=== PATIENT | female | born 1950 | race Caucasian/White ===

== ENCOUNTER 2019-02-23 15:50 | Inpatient (IN) | payer MEDICARE ==
[2019-02-23] MEDS ORDERED: NORMAL SALINE 1000 ML 1,630 ML IV ONE (16:10)
[2019-02-23] MEDS ORDERED: VANCOMYCIN HCL INJ 1000 MG VIAL IV ONE (16:10)
[2019-02-23] MEDS ORDERED: CEFEPIME INJ 1 GM VIAL IM ONE (16:10)
[2019-02-23] MEDS ORDERED: ACETAMINOPHEN 325 MG TABLET PO ONE (16:10)
[2019-02-23] MEDS ORDERED: ACETAMINOPHEN 650 MG SUPP.RECT PR ONE (16:14)
[2019-02-23] MEDS ORDERED: CEFEPIME 2 GM/D5W RTU 2 GM/50 ML RTUPB IV ONE ×2 (16:27→22:12)
[2019-02-23] MEDS ORDERED: NORMAL SALINE 1000 ML 1,000 ML IV ONE ×3 (16:28→18:50)
[2019-02-23 16:29] LABS: VENOUS BLOOD BASE EXCESS 0.4 mmol/L; VENOUS BLOOD HCO3 23.6 mmol/L (20-32); VENOUS BLOOD PCO2 33.6 mmHg (35-63); VENOUS BLOOD PH 7.46 (7.30-7.42)
--- NOTE | 2019-02-23 16:32 | RADIOLOGY REPORT (SQ) ---
EXAM DESCRIPTION: CT HEAD WITHOUT COMPLETED DATE/TIME: 02/23/2019 4:23 pm REASON FOR STUDY: ams COMPARISON: None. TECHNIQUE: Axial images acquired through the brain without intravenous contrast. Images reviewed wi th bone, brain and subdural windows. Additional sagittal and coronal reconstructions were generated. Images stored on PACS. All CT scanners at this facility use dose modulation, iterative reconstruction, and/or weight based d osing when appropriate to reduce radiation dose to as low as reasonably achievable (ALARA). [facility]: Dose Right [facility]: CareDose [facility]: Dose Right [facility]: Teradose 4D [facility]: Pulsant RADIATION DOSE: CT Rad equipment meets quality standard of care and radiation dose reduction techniq ues were employed. CTDIvol: 55.2 mGy. DLP: 1056 mGy-cm.mGy. LIMITATIONS: None. FINDINGS: VENTRICLES: Prominent. CEREBRUM: No masses. No hemorrhage. No midline shift. Areas of low density in the white matter mos t likely due to chronic micro-vascular ischemic change. No evidence for acute infarction. CEREBELLUM: No masses. No hemorrhage. No alteration of density. No evidence for acute infarction. EXTRAAXIAL SPACES: Age-related involutional change. No fluid collections. No masses. ORBITS AND GLOBE: No intra- or extraconal masses. Normal contour of globe without masses. CALVARIUM: No fracture. PARANASAL SINUSES: Soft tissue filling the left maxillary sinus. Partial opacification of the left e thmoid sinus. SOFT TISSUES: No mass or hematoma. OTHER: No other significant finding. IMPRESSION: CHRONIC CHANGES OF ATROPHY AND MICROVASCULAR ISCHEMIA. NO ACUTE PROCESS. SINUS DISEASE. EVIDENCE OF ACUTE STROKE: NO. TECHNICAL DOCUMENTATION: JOB ID: [id number] Quality ID # [id number]: Final reports with documentation of one or more dose reduction techniques (e.g., Au tomated exposure control, adjustment of the mA and/or kV according to patient size, use of iterative reconstruction technique) 2010 [employer]- All Rights Reserved Reading location - IP/workstation name: [email or web address]
[2019-02-23 16:33] LABS: ABSOLUTE LYMPHOCYTES (AUTO) 1.1 10^3/uL (0.5-4.7); ABSOLUTE MONOCYTES (AUTO) 0.5 10^3/uL (0.1-1.4); ABSOLUTE NEUT (AUTO) 7.6 10^3/uL (1.7-8.2); BASOPHILS % (AUTO) 0.2 % (0-2); HEMATOCRIT 34.1 % (36.0-47.0); HEMOGLOBIN 11.8 g/dL (12.0-15.5); LYMPHOCYTES % (AUTO) 11.8 % (13-45); MEAN CORPUSCULAR HEMOGLOBIN 32.6 pg (27.0-33.4); MEAN CORPUSCULAR HGB CONC 34.7 g/dL (32.0-36.0); MEAN CORPUSCULAR VOLUME 94 fl (80-97); MONOCYTES % (AUTO) 5.9 % (3-13); PLATELET COUNT 158 10^3/uL (150-450); RED BLOOD COUNT 3.63 10^6/uL (3.72-5.28); RED CELL DISTRIBUTION WIDTH 13.4 % (11.5-14.0); SEGMENTED NEUTROPHILS % (AUTO) 82.1 % (42-78); TOTAL CELLS COUNTED % (AUTO) 100 %; WHITE BLOOD COUNT 9.3 10^3/uL (4.0-10.5)
[2019-02-23 16:36] LABS: INTERNATIONAL RATION (INR) 0.97; PROTHROMBIN TIME 12.9 SEC (11.4-15.4)
--- NOTE | 2019-02-23 16:40 | RADIOLOGY REPORT (SQ) ---
EXAM DESCRIPTION: CHEST SINGLE VIEW COMPLETED DATE/TIME: 02/23/2019 4:30 pm REASON FOR STUDY: fever COMPARISON: None. EXAM PARAMETERS: NUMBER OF VIEWS: One view. TECHNIQUE: Single frontal radiographic view of the chest acquired. RADIATION DOSE: NA LIMITATIONS: None. FINDINGS: LUNGS AND PLEURA: No opacities, masses or pneumothorax. No pleural effusion. MEDIASTINUM AND HILAR STRUCTURES: No masses. Contour normal. HEART AND VASCULAR STRUCTURES: Heart normal in size. Normal vasculature. BONES: No acute findings. HARDWARE: None in the chest. OTHER: No other significant finding. IMPRESSION: NO ACUTE RADIOGRAPHIC FINDING IN THE CHEST. TECHNICAL DOCUMENTATION: JOB ID: [id number] [place]-72 2010 [employer]- All Rights Reserved Reading location - IP/workstation name: [email or web address]
[2019-02-23 16:48] LABS: ALBUMIN 4.4 g/dL (3.5-5.0); ALKALINE PHOSPHATASE 81 U/L (38-126); ANION GAP 11 (5-19); ASPARTATE AMINO TRANSFERASE 27 U/L (14-36); BILIRUBIN,DIRECT 0.1 mg/dL (0.0-0.4); BILIRUBIN,TOTAL 0.8 mg/dL (0.2-1.3); BLOOD UREA NITROGEN 13 mg/dL (7-20); CALCIUM 9.7 mg/dL (8.4-10.2); CARBON DIOXIDE 26 mmol/L (22-30); CHLORIDE 96 mmol/L (98-107); GLUCOSE 124 mg/dL (75-110); POTASSIUM 3.7 mmol/L (3.6-5.0)
[2019-02-23 17:10] LABS: APPEARANCE,URINE CLOUDY; BILIRUBIN,URINE NEGATIVE (NEGATIVE); COLOR,URINE YELLOW; GLUCOSE, URINE 50 mg/dL (NEGATIVE); KETONES,URINE NEGATIVE (NEGATIVE); PROTEIN,URINE 30 mg/dL (NEGATIVE); URINE SPECIFIC GRAVITY 1.026; UROBILINOGEN,URINE NEGATIVE mg/dL (<2.0)
--- NOTE | 2019-02-23 17:57 | ER Document Report ---
ED Dizziness/Weakness - General Chief Complaint: Altered Mental Status Stated Complaint: ALTERED MENTAL STATUS Time Seen by Provider: 02/23/19 15:55 Mode of Arrival: Medic Information source: Patient, Relative - [facility] Notes: Patient is brought in by ambulance for confusion. Most of the history was obtained from family. They state approximately 2 days ago patient was taken to [facility] for some toe pain. At that time she was diagnosed with toe cellulitis. She was placed on Keflex and Septra. They states she has taken 1 pill of each medicine and then began to become confused. She has remained confused since last night so they brought her to the emergency department today. She did have some vomiting 2 nights ago but none since then. She is complaining of toe pain. For me patient is confused and a very poor historian. She does not complain of any specific pain or problems. Family states the patient has not complained of any type of trouble breathing and has had no real cough. They do not know of any rashes other than her left toe has been red. No known diarrhea. No known injuries. Patient's pain of the left toe was apparently moderate to severe. It radiated up her left leg. Is worse with movement and better with rest. It was a constant throbbing pain. - Related Data Allergies/Adverse Reactions: bees, wasps Allergy (Uncoded 02/23/19 16:40) Past Medical History - General Information source: Patient, Relative - Social History Smoking Status: Never Smoker Frequency of alcohol use: Occasional Drug Abuse: None Family History: Reviewed & Not Pertinent Patient has suicidal ideation: No Patient has homicidal ideation: No Review of Systems - Review of Systems Constitutional: Chills, Fever, Malaise, Weakness Cardiovascular: denies: Chest pain, Palpitations Respiratory: denies: Cough, Short of breath -: Yes All other systems reviewed and negative Physical Exam - Vital signs Vitals: Temp 99.5 F 02/23/19 15:50 Interpretation: Febrile - 102.3 - General General appearance: Anxious In distress: Mild - HEENT Head: Normocephalic, Atraumatic Eyes: Normal Pupils: PERRL - Respiratory Respiratory status: No respiratory distress Chest status: Nontender Breath sounds: Normal Chest palpation: Normal - Cardiovascular Rhythm: Regular Heart sounds: Normal auscultation Murmur: No - Abdominal Inspection: Normal Distension: No distension Bowel sounds: Normal Tenderness: Nontender Organomegaly: No organomegaly - Back Back: Normal, Nontender - Extremities General upper extremity: Normal inspection, Nontender, Normal color, Normal ROM, Normal temperature General lower extremity: Normal inspection, Tender - Left big toe is tender however inspection is unremarkable., Normal color, Normal temperature. No: Gonzalez's sign - Neurological Cognition: Confused Orientation: Disoriented to place, Disoriented to time [place] Coma Scale Eye Opening: Spontaneous [place] Coma Scale Verbal: Confused [place] Coma Scale Motor: Obeys Commands [place] Coma Scale Total: 14 Speech: Normal Motor strength normal: LUE, RUE, LLE, RLE Sensory: Normal - Psychological Associated symptoms: Agitated, Anxious - Skin Skin Temperature: Warm Skin Moisture: Dry Skin Color: Normal Course - Re-evaluation Re-evalutation: 02/23/19 17:55 Patient presents with fever of 1023 and appears to be encephalopathic. Patient is confused. She has no meningismus and I can range her neck without pain. Her exam is not consistent with meningitis. She avidly has a systemic infection however the source of that at this time is unclear. She has a negative urine, negative x-ray, negative head CT. Laboratories are remarkable for an elevated lactate however she has a normal white blood cell count. Her abdomen is not significantly tender. I do not appreciate any rashes. Patient does appear very dry with dry mucous membranes. As patient becomes more hydrated she is becoming less confused. - Vital Signs Vital signs: Temp Pulse Resp BP Pulse Ox 102.9 F H 25 H 97/74 L 99 02/23/19 16:11 02/23/19 17:00 02/23/19 16:02 02/23/19 17:00 - Laboratory Result Diagrams: 02/23/19 16:05 02/23/19 16:05 Laboratory results interpreted by me: 02/23/19 02/23/19 02/23/19 16:05 16:05 16:05 RBC 3.63 L Hgb 11.8 L Hct 34.1 L Lymph % (Auto) 11.8 L Seg Neutrophils % 82.1 H VBG pH VBG pCO2 Sodium 133.4 L Chloride 96 L Glucose 124 H POC Glucose Lactic Acid 2.3 H Urine Protein Urine Glucose (UA) Urine Blood 10/15/19 10/15/19 10/15/19 16:05 16:09 16:51 RBC Hgb Hct Lymph % (Auto) Seg Neutrophils % VBG pH 7.46 H VBG pCO2 33.6 L Sodium Chloride Glucose POC Glucose 120 H Lactic Acid Urine Protein 30 H Urine Glucose (UA) 50 H Urine Blood SMALL H - Diagnostic Test Radiology reviewed: Image reviewed, Reports reviewed - EKG Interpretation by Me EKG shows normal: Sinus rhythm Rate: Normal - 65 Rhythm: NSR [place]/QRS: No: Right axis deviation, Left axis deviation Critical Care Note - Critical Care Note Total time excluding time spent on procedures (mins): 45 Comments: I spent approximately 45 minutes of critical care time on this patient. This included multiple reassessments. It included discussions with multiple family members and patient. It included multiple consults with specialist. It included review of labs and imaging. Discharge - Discharge Clinical Impression: Elevated lactic acid level Fever Qualifiers: Fever type: due to other condition Qualified Code(s): R50.81 - Fever presenting with conditions classified elsewhere Altered mental status Qualifiers: Altered mental status type: disorientation Qualified Code(s): R41.0 - Disorientation, unspecified Condition: Serious Disposition: ADMITTED INPATIENT Admitting Provider: Tray (Hospitalist) Unit Admitted: [facility]
--- NOTE | 2019-02-23 18:10 | PDOC PROGRESS REPORT ---
Subjective Progress Note for:: 02/23/19 Subjective:: "Please give me some water!" Reason For Visit: ALTERED MENTAL STATUS This patient is a 68 yo woman otherwise healthy who has been ill with an altered mental status since yesterday afternoon. She has had a great toe celullitis which is resolved. Family reports a GI illness with no pain but 4-5 episodes of vomiting in the last 24 hours. No obvious history of aspiration. Mental status somewhat altered, flutuates and has not gotten worse. Protecting airway well. Essentially no PO intake. Very dehydrated and literally crying out for something to drink. Physical Exam Vital Signs: Temp Pulse Resp BP Pulse Ox 102.9 F H 25 H 97/74 L 99 02/23/19 16:11 02/23/19 17:00 02/23/19 16:02 02/23/19 17:00 Intake & Output 02/22/19 02/23/19 02/24/19 06:59 06:59 06:59 Intake Total 1050 Balance 1050 Weight 54.2 kg General appearance: PRESENT: no acute distress, cooperative, thin Head exam: PRESENT: atraumatic Eye exam: PRESENT: EOMI, PERRLA Additional comments: Neck moves very well. Ear exam: PRESENT: normal external ear exam Mouth exam: PRESENT: dry mucosa, neck supple, tongue midline Neck exam: PRESENT: full ROM Respiratory exam: PRESENT: clear to auscultation dania, decreased breath sounds, unlabored Cardiovascular exam: PRESENT: RRR Vascular exam: PRESENT: normal capillary refill GI/Abdominal exam: PRESENT: soft Additonal comments: No abdominal pain. Rectal exam: PRESENT: deferred Extremities exam: PRESENT: full ROM Musculoskeletal exam: PRESENT: full ROM, normal inspection Additional comments: No R great toe cellulitis Neurological exam: PRESENT: alert, altered, awake, oriented to person Results Laboratory Results: 02/23/19 16:05 02/23/19 16:05 02/23/19 02/23/19 02/23/19 16:05 16:05 16:05 WBC 9.3 RBC 3.63 L Hgb 11.8 L Hct 34.1 L MCV 94 MCH 32.6 MCHC 34.7 RDW 13.4 Plt Count 158 Seg Neutrophils % 82.1 H VBG pH VBG pCO2 VBG HCO3 VBG Base Excess Sodium 133.4 L Potassium 3.7 Chloride 96 L Carbon Dioxide 26 Anion Gap 11 BUN 13 Creatinine 0.69 Est GFR ( Amer) > 60 Glucose 124 H Lactic Acid 2.3 H Calcium 9.7 Total Bilirubin 0.8 AST 27 Alkaline Phosphatase 81 Total Protein 7.0 Albumin 4.4 Urine Color Urine Appearance Urine pH Ur Specific [place] Urine Protein Urine Glucose (UA) Urine Ketones Urine Blood Urine RBC (Auto) 02/23/19 02/23/19 16:05 16:51 WBC RBC Hgb Hct MCV MCH MCHC RDW Plt Count Seg Neutrophils % VBG pH 7.46 H VBG pCO2 33.6 L VBG HCO3 23.6 VBG Base Excess 0.4 Sodium Potassium Chloride Carbon Dioxide Anion Gap BUN Creatinine Est GFR ( Amer) Glucose Lactic Acid Calcium Total Bilirubin AST Alkaline Phosphatase Total Protein Albumin Urine Color YELLOW Urine Appearance CLOUDY Urine pH 5.0 Ur Specific [place] 1.026 Urine Protein 30 H Urine Glucose (UA) 50 H Urine Ketones NEGATIVE Urine Blood SMALL H Urine RBC (Auto) 3 02/23/19 16:10 Troponin I < 0.012 Impressions: Chest X-Ray 02/23/19 16:10 IMPRESSION: NO ACUTE RADIOGRAPHIC FINDING IN THE CHEST. Head CT 02/23/19 16:12 IMPRESSION: CHRONIC CHANGES OF ATROPHY AND MICROVASCULAR ISCHEMIA. NO ACUTE P ROCESS. SINUS DISEASE. EVIDENCE OF ACUTE STROKE: NO. Assessment & Plan - Diagnosis (1) Fever Qualifiers: Fever type: unspecified Qualified Code(s): R50.9 - Fever, unspecified Is this a current diagnosis for this admission?: Yes Plan: Her fever needs to be treated as it is driving the dehydration and delirium some. Tylenol given. (2) Gastritis Qualifiers: Gastritis type: unspecified gastritis Gastritis bleeding: without bleeding Is this a current diagnosis for this admission?: Yes Plan: Presumed viral. No diarrhea. No further vomiting. OK for liquids at this time. Carafate or protonix may help. Use of recent Keflex is unlikely as her family notes she has taken only one dose and keflex is not known for this (3) Aspiration into airway Qualifiers: Encounter type: initial encounter Qualified Code(s): T17.908A - Unspecified foreign body in respiratory tract, part unspecified causing other injury, initial encounter Is this a current diagnosis for this admission?: Yes Plan: This is a presumed source. Family states 'all this started after she vomited Friday night." Highly suspicious. An aspiration syndrome (Sandip's) can present with SIRS, which she does not have. Delirium which is fluctuating. Profound dehydration which she has. Lungs sounds can be clear and CXR also clear. Especially when dehydrated. Treatment is supportive with oxygen' resp treatments if needed. Antibiotics may not help and rehydration. At this time she is protecting her airway, is awake but altered and has no need for the ICU. If with rehydration her respiratory status worsens we can re-evaluate. Most times they improve. (4) Dehydration Is this a current diagnosis for this admission?: Yes Plan: She has had only about 500cc of first bag. My guess is she will need 3 liters at least. (5) Delirium Is this a current diagnosis for this admission?: Yes Plan: This is flutuating even during my exam. It is acute, driven by fever and dehydration but should improve in the next 24 hours. - Time Time Spent with patient: 35 or more minutes Total Critical Time (Minutes): 45 Medications reviewed and adjusted accordingly: Yes Anticipated discharge: Home Within: within 72 hours - Inpatient Certification Medical Necessity: Failure to Improve With Outpatient Therapy, Need Close Monitoring Due to Risk of Patient Decompensation, Need For IV Fluids, Need for Nebulizer Therapy and Monitoring of Response
[2019-02-23] MEDS ORDERED: DEXTROSE 40% GEL 15 GM TUBE PO PRN ×4 (18:30→18:43)
[2019-02-23] MEDS ORDERED: ACETAMINOPHEN 325 MG TABLET PO PRN (18:30)
[2019-02-23] MEDS ORDERED: VANCOMYCIN HCL 0 MG in DEXTROSE 5%-WATER 250 ML IV NR (18:30)
[2019-02-23] MEDS ORDERED: DEXTROSE 50%-WATER 25 GM/50 ML DISP.SYRIN IV PRN ×4 (18:30→18:43)
[2019-02-23] MEDS ORDERED: GLUCAGON,HUMAN RECOMB 1 MG INJ SUBCUT PRN (18:30)
[2019-02-23] MEDS ORDERED: ACETAMINOPHEN 650 MG SUPP.RECT PR PRN (18:30)
[2019-02-23] MEDS ORDERED: ONDANSETRON HCL INJ/PF 4 MG/2 ML SDV IV PRN (18:30)
[2019-02-23] MEDS ORDERED: ONDANSETRON 4 MG TAB.RAPDIS PO PRN (18:30)
[2019-02-23] MEDS ORDERED: GLUCAGON,HUMAN RECOMB 1 MG INJ IM PRN (18:43)
--- NOTE | 2019-02-23 19:05 | PDOC H&P ---
History of Present Illness Admission Date/PCP: 02/23/19 18:15 History of Present Illness: JONATHAN DURON is a 68 year old female who has a 1 day history of confusion and fever. She is too confused to give me history but per the chart and per the family that was here earlier 2 days ago she went to [facility] where she was treated for a possible cellulitis in her great toe on the left foot. Evidently had 1 dose of Septra and 1 dose of Keflex. Last night she had for 5 episodes of vomiting and became confused. In the emergency room she has a temperature of 102.3 she is disoriented to person place and time. Was seen by the despatch clerk who felt that this may be secondary to dehydration, possible aspiration pneumonias secondary to the vomiting last night.. Patient will be admitted to the hospital for septic protocol, close observation of and repeat lab work. Counts 9.3 lactic acid is slightly elevated at 2.3. Electrolytes are grossly normal glucose is normal, several labs are pending such as ammonia level and TSH level.. Chest x-ray shows no acute cardiopulmonary disease admission CT head scan shows no acute intracranial lesions. Past Medical History Medical History: Other - She is too confused to give a accurate past history although she denies diabetes she denies hypertension she denies heart disease Social History Smoking Status: Never Smoker - Advance Directive Resuscitation Status: Full Code Family History Family History: Reviewed & Not Pertinent Parental Family History Reviewed: No Children Family History Reviewed: No Sibling(s) Family History Reviewed.: No Medication/Allergy Allergies/Adverse Reactions: No Known Drug Allergies Allergy (Verified 02/23/19 18:25) bees, wasps Allergy (Uncoded 02/23/19 18:25) Review of Systems ROS unobtainable: Due to mental status Constitutional: ABSENT: chills, fever(s), headache(s), weight gain, weight loss Cardiovascular: ABSENT: chest pain, dyspnea on exertion, edema, orthropnea, palpitations Respiratory: ABSENT: cough, hemoptysis Musculoskeletal: PRESENT: other - Since only complaint is of pain in the left great toe Neurological: PRESENT: confusion, lack of coordination, weakness. ABSENT: abnormal gait, abnormal speech, dizziness, focal weakness, syncope Psychiatric: PRESENT: anxiety Physical Exam Vital Signs: Temp Pulse Resp BP Pulse Ox 102.9 F H 25 H 104/93 H 100 02/23/19 16:11 10/15/19 18:00 02/23/19 17:01 02/23/19 18:00 Intake & Output 02/22/19 02/23/19 02/24/19 06:59 06:59 06:59 Intake Total 1050 Balance 1050 Weight 54.2 kg General appearance: PRESENT: mild distress, other - She seems to be restless and rolling from side to side on the stretcher, confused about her orientation to place and person. No other family members are present they were earlier to the ER staff. Stating that this behavior started last night and is new for the patient Respiratory exam: PRESENT: clear to auscultation dania. ABSENT: rales, rhonchi, wheezes Cardiovascular exam: PRESENT: RRR. ABSENT: diastolic murmur, rubs, systolic murmur Neurological exam: PRESENT: altered Psychiatric exam: PRESENT: anxious, unusual affect Results Laboratory Results: 02/23/19 16:05 02/23/19 16:05 02/23/19 02/23/19 02/23/19 16:05 16:05 16:05 WBC 9.3 RBC 3.63 L Hgb 11.8 L Hct 34.1 L MCV 94 MCH 32.6 MCHC 34.7 RDW 13.4 Plt Count 158 Seg Neutrophils % 82.1 H VBG pH VBG pCO2 VBG HCO3 VBG Base Excess Sodium 133.4 L Potassium 3.7 Chloride 96 L Carbon Dioxide 26 Anion Gap 11 BUN 13 Creatinine 0.69 Est GFR ( Amer) > 60 Glucose 124 H Lactic Acid 2.3 H Calcium 9.7 Total Bilirubin 0.8 AST 27 Alkaline Phosphatase 81 Total Protein 7.0 Albumin 4.4 Urine Color Urine Appearance Urine pH Ur Specific [place] Urine Protein Urine Glucose (UA) Urine Ketones Urine Blood Urine RBC (Auto) 02/23/19 02/23/19 16:05 16:51 WBC RBC Hgb Hct MCV MCH MCHC RDW Plt Count Seg Neutrophils % VBG pH 7.46 H VBG pCO2 33.6 L VBG HCO3 23.6 VBG Base Excess 0.4 Sodium Potassium Chloride Carbon Dioxide Anion Gap BUN Creatinine Est GFR ( Amer) Glucose Lactic Acid Calcium Total Bilirubin AST Alkaline Phosphatase Total Protein Albumin Urine Color YELLOW Urine Appearance CLOUDY Urine pH 5.0 Ur Specific [place] 1.026 Urine Protein 30 H Urine Glucose (UA) 50 H Urine Ketones NEGATIVE Urine Blood SMALL H Urine RBC (Auto) 3 02/23/19 16:10 Troponin I < 0.012 Impressions: Chest X-Ray 02/23/19 16:10 IMPRESSION: NO ACUTE RADIOGRAPHIC FINDING IN THE CHEST. Head CT 02/23/19 16:12 IMPRESSION: CHRONIC CHANGES OF ATROPHY AND MICROVASCULAR ISCHEMIA. NO ACUTE PROCESS. SINUS DISEASE. EVIDENCE OF ACUTE STROKE: NO. Assessment and Plan - Diagnosis (1) Sepsis Is this a current diagnosis for this admission?: Yes Plan: Patient's lactic acid level was 2.3 although her white count is normal. She is febrile with a temperature of 102.3. Cultures are pending patient was placed on broad-spectrum antibiotics Patient has no meningeal signs. (2) Gout Is this a current diagnosis for this admission?: Yes Plan: Patient is complaining of left great toe pain, she states is tender to palpate and it is slightly red and inflamed appearing (3) Delirium Is this a current diagnosis for this admission?: Yes Plan: Patient is currently confused to person place and time patient states she is not sure why she came other than her left great toe is hurting. She denies significant alcohol consumption she states that she drinks only "occasionally. Patient denies illegal drugs Urine drug screen and alcohol levels are pending however (4) Fever Qualifiers: Fever type: unspecified Qualified Code(s): R50.9 - Fever, unspecified Is this a current diagnosis for this admission?: Yes Plan: She will be treated with Tylenol either by mouth or per rectum for fevers - Plan Summary Summary: She has been given 2 L of normal saline by bolus in the ER I am ordering 1 more liter of bolus fluid and then 150/h patient was placed on cefepime and vancomycin IV. Frequent repeat labs will be drawn throughout the night as well as in the morning. She has been seen by the despatch clerk who feels that this is either aspiration pneumonia and/or dehydration - Time Time Spent with patient: 35 or more minutes
[2019-02-23] MEDS: ENOXAPARIN SODIUM INJ 40 MG/0.4 ML DISP.SYRIN SUBCUT SCH (20:15)
[2019-02-23 20:48] LABS: URINE AMPHETAMINES SCREEN NEGATIVE; URINE BARBITURATES SCREEN NEGATIVE; URINE BENZODIAZEPINES SCREEN UNCONFIRMED POSITIVE; URINE COCAINE SCREEN NEGATIVE; URINE MARIJUANA (THC) SCREEN UNCONFIRMED POSITIVE; URINE METHADONE SCREEN NEGATIVE; URINE PHENCYCLIDINE SCREEN NEGATIVE
--- NOTE | 2019-02-23 21:39 | EKG REPORT ---
SEVERITY:- ABNORMAL ECG - SINUS RHYTHM MULTIPLE ATRIAL PREMATURE COMPLEXES : Confirmed by: Edgardo Cardoza 23-Feb-2019 21:38:35
[2019-02-23] MEDS ORDERED: INSULIN LISPRO 100 UNIT/ML 3 ML VIAL SUBCUT SCH (22:00)
[2019-02-23] MEDS: NORMAL SALINE 1000 ML 1,000 ML IV PRN (22:01)
[2019-02-23] MEDS: CEFEPIME 2 GM/D5W RTU 2 GM/50 ML RTUPB IV SCH (23:18)
[2019-02-24] MEDS: INSULIN LISPRO 100 UNIT/ML 3 ML VIAL SUBCUT SCH ×4 (00:45→22:05)
[2019-02-24] MEDS: NORMAL SALINE 1000 ML 1,000 ML IV PRN ×3 (02:32→22:07)
[2019-02-24 05:15] LABS: C DIFFICILE GDH NEGATIVE (NEGATIVE)
[2019-02-24] MEDS: VANCOMYCIN HCL 500 MG in DEXTROSE 5%-WATER 100 ML IV SCH ×2 (05:39→18:00)
[2019-02-24] MEDS ORDERED: LORAZEPAM INJ 2 MG/1 ML VIAL ONE (05:55)
[2019-02-24] MEDS ORDERED: LORAZEPAM INJ 2 MG/1 ML VIAL IV PRN (06:06)
[2019-02-24 07:40] LABS: ABSOLUTE LYMPHOCYTES (AUTO) 1.7 10^3/uL (0.5-4.7); ABSOLUTE MONOCYTES (AUTO) 0.9 10^3/uL (0.1-1.4); ABSOLUTE NEUT (AUTO) 6.9 10^3/uL (1.7-8.2); BASOPHILS % (AUTO) 0.4 % (0-2); HEMATOCRIT 30.4 % (36.0-47.0); HEMOGLOBIN 10.7 g/dL (12.0-15.5); LYMPHOCYTES % (AUTO) 17.7 % (13-45); MEAN CORPUSCULAR HEMOGLOBIN 33.1 pg (27.0-33.4); MEAN CORPUSCULAR HGB CONC 35.1 g/dL (32.0-36.0); MEAN CORPUSCULAR VOLUME 94 fl (80-97); MONOCYTES % (AUTO) 9.5 % (3-13); PLATELET COUNT 127 10^3/uL (150-450); RED BLOOD COUNT 3.23 10^6/uL (3.72-5.28); RED CELL DISTRIBUTION WIDTH 13.5 % (11.5-14.0); SEGMENTED NEUTROPHILS % (AUTO) 72.4 % (42-78); TOTAL CELLS COUNTED % (AUTO) 100 %; WHITE BLOOD COUNT 9.6 10^3/uL (4.0-10.5)
[2019-02-24 07:41] LABS: INTERNATIONAL RATION (INR) 1.09; PROTHROMBIN TIME 14.1 SEC (11.4-15.4)
[2019-02-24 08:05] LABS: ALBUMIN 3.1 g/dL (3.5-5.0); ALKALINE PHOSPHATASE 72 U/L (38-126); ANION GAP 7 (5-19); ASPARTATE AMINO TRANSFERASE 55 U/L (14-36); BILIRUBIN,DIRECT 0.1 mg/dL (0.0-0.4); BILIRUBIN,TOTAL 0.8 mg/dL (0.2-1.3); BLOOD UREA NITROGEN 12 mg/dL (7-20); CALCIUM 8.5 mg/dL (8.4-10.2); CARBON DIOXIDE 20 mmol/L (22-30); CHLORIDE 108 mmol/L (98-107); GLUCOSE 125 mg/dL (75-110); POTASSIUM 3.2 mmol/L (3.6-5.0); TOTAL PROTEIN 5.3 g/dL (6.3-8.2)
[2019-02-24] MEDS ORDERED: POTASSI CL 20 MEQ/50 ML RIDER 20 MEQ/50 ML RTUPB IV ONE (09:23)
[2019-02-24] MEDS: DOCUSATE SODIUM 100 MG CAPSULE PO SCH (09:23)
[2019-02-24] MEDS: ENOXAPARIN SODIUM INJ 40 MG/0.4 ML DISP.SYRIN SUBCUT SCH (09:23)
--- NOTE | 2019-02-24 09:31 | PDOC PROGRESS REPORT ---
Subjective Progress Note for:: 02/24/19 Subjective:: 02/24/2019-no complaints this a.m. Reason For Visit: 1. CONFUSION #2 SEPSIS #3 TOE PAIN Physical Exam Vital Signs: Temp Pulse Resp BP Pulse Ox 98.5 F 85 19 121/65 95 02/24/19 08:00 02/24/19 08:00 02/24/19 08:00 02/24/19 08:00 02/24/19 08:00 Intake & Output 02/23/19 02/24/19 02/25/19 06:59 06:59 06:59 Intake Total 3687 100 Output Total 450 Balance 3237 100 Weight 63.2 kg General appearance: PRESENT: no acute distress, well-developed, well-nourished Neck exam: ABSENT: carotid bruit, JVD, lymphadenopathy, thyromegaly Respiratory exam: PRESENT: clear to auscultation dania. ABSENT: rales, rhonchi, wheezes Cardiovascular exam: PRESENT: RRR. ABSENT: diastolic murmur, rubs, systolic murmur Pulses: PRESENT: normal dorsalis pedis pul Vascular exam: PRESENT: normal capillary refill GI/Abdominal exam: PRESENT: normal bowel sounds, soft. ABSENT: distended, guarding, mass, organolmegaly, rebound, tenderness Extremities exam: PRESENT: full ROM. ABSENT: calf tenderness, clubbing, pedal edema Neurological exam: PRESENT: alert, awake. ABSENT: motor sensory deficit Psychiatric exam: PRESENT: appropriate affect, normal mood. ABSENT: homicidal ideation, suicidal ideation Skin exam: PRESENT: dry, intact, warm. ABSENT: cyanosis, rash Results Laboratory Results: 02/24/19 07:06 02/24/19 07:06 02/23/19 02/23/19 02/23/19 16:05 16:05 16:05 WBC 9.3 RBC 3.63 L Hgb 11.8 L Hct 34.1 L MCV 94 MCH 32.6 MCHC 34.7 RDW 13.4 Plt Count 158 Seg Neutrophils % 82.1 H VBG pH VBG pCO2 VBG HCO3 VBG Base Excess Sodium 133.4 L Potassium 3.7 Chloride 96 L Carbon Dioxide 26 Anion Gap 11 BUN 13 Creatinine 0.69 Est GFR ( Amer) > 60 Glucose 124 H Lactic Acid 2.3 H Uric Acid Calcium 9.7 Magnesium Total Bilirubin 0.8 AST 27 Alkaline Phosphatase 81 Ammonia Total Protein 7.0 Albumin 4.4 TSH Urine Color Urine Appearance Urine pH Ur Specific [place] Urine Protein Urine Glucose (UA) Urine Ketones Urine Blood Urine RBC (Auto) 02/23/19 02/23/19 02/23/19 16:05 16:05 16:05 WBC RBC Hgb Hct MCV MCH MCHC RDW Plt Count Seg Neutrophils % VBG pH 7.46 H VBG pCO2 33.6 L VBG HCO3 23.6 VBG Base Excess 0.4 Sodium Potassium Chloride Carbon Dioxide Anion Gap BUN Creatinine Est GFR ( Amer) Glucose Lactic Acid Uric Acid Calcium Magnesium 2.0 Total Bilirubin AST Alkaline Phosphatase Ammonia Total Protein Albumin TSH 0.51 Urine Color Urine Appearance Urine pH Ur Specific [place] Urine Protein Urine Glucose (UA) Urine Ketones Urine Blood Urine RBC (Auto) 02/23/19 02/23/19 02/23/19 16:05 16:51 19:48 WBC RBC Hgb Hct MCV MCH MCHC RDW Plt Count Seg Neutrophils % VBG pH VBG pCO2 VBG HCO3 VBG Base Excess Sodium Potassium Chloride Carbon Dioxide Anion Gap BUN Creatinine Est GFR ( Amer) Glucose Lactic Acid Uric Acid 3.3 Calcium Magnesium Total Bilirubin AST Alkaline Phosphatase Ammonia 10.1 Total Protein Albumin TSH Urine Color YELLOW Urine Appearance CLOUDY Urine pH 5.0 Ur Specific [place] 1.026 Urine Protein 30 H Urine Glucose (UA) 50 H Urine Ketones NEGATIVE Urine Blood SMALL H Urine RBC (Auto) 3 02/24/19 02/24/19 02/24/19 07:06 07:06 07:06 WBC 9.6 RBC 3.23 L Hgb 10.7 L Hct 30.4 L MCV 94 MCH 33.1 MCHC 35.1 RDW 13.5 Plt Count 127 L Seg Neutrophils % 72.4 VBG pH VBG pCO2 VBG HCO3 VBG Base Excess Sodium 135.1 L Potassium 3.2 L Chloride 108 H Carbon Dioxide 20 L Anion Gap 7 BUN 12 Creatinine 0.55 Est GFR ( Amer) > 60 Glucose 125 H Lactic Acid 0.9 Uric Acid Calcium 8.5 Magnesium Total Bilirubin 0.8 AST 55 H Alkaline Phosphatase 72 Ammonia Total Protein 5.3 L Albumin 3.1 L TSH Urine Color Urine Appearance Urine pH Ur Specific [place] Urine Protein Urine Glucose (UA) Urine Ketones Urine Blood Urine RBC (Auto) 02/23/19 02/23/19 16:05 16:10 Creatine Kinase 116 Troponin I < 0.012 Impressions: Chest X-Ray 02/23/19 16:10 IMPRESSION: NO ACUTE RADIOGRAPHIC FINDING IN THE CHEST. Head CT 02/23/19 16:12 IMPRESSION: CHRONIC CHANGES OF ATROPHY AND MICROVASCULAR ISCHEMIA. NO ACUTE PROCESS. SINUS DISEASE. EVIDENCE OF ACUTE STROKE: NO. Assessment and Plan - Plan Summary Summary: She has been given 2 L of normal saline by bolus in the ER I am ordering 1 more liter of bolus fluid and then 150/h patient was placed on cefepime and vancomyci n IV. Frequent repeat labs will be drawn throughout the night as well as in the morning. She has been seen by the ticket scheduler who feels that this is either aspiration pneumonia and/or dehydration 02/24/2019- Sepsis improved. Continue antibiotics. Cultures are pending. I will await further findings. Gout-continue current therapy Delirium-patient remains with sitter at this time. Patient is confused awake only not alert to person place time at this time. Continue to follow Fever-improved. Continue to follow Hypokalemia-20 mEq potassium chloride IV times 1 repeat BMP in a.m. - Time Time Spent with patient: 15-24 minutes - Inpatient Certification Based on my medical assessment, after consideration of the patient's comorbidities, presenting symptoms, or acuity I expect that the services needed warrant INPATIENT care.: Yes I certify that my determination is in accordance with my understanding of Medicare's requirements for reasonable and necessary INPATIENT services [42 CFR 412.3e].: Yes Medical Necessity: Need for IV Antibiotics
[2019-02-24] MEDS: CEFEPIME 2 GM/D5W RTU 2 GM/50 ML RTUPB IV SCH ×2 (09:33→22:04)
[2019-02-24] MEDS ORDERED: POTASSIUM CHLORIDE 20 MEQ PACKET PO ONE (18:00)
--- NOTE | 2019-02-24 23:07 | EKG REPORT ---
SEVERITY:- ABNORMAL ECG - PROBABLE SINUS, REC REPEAT EKG RIGHT AXIS DEVIATION : Confirmed by: Edgardo Cardoza 24-Feb-2019 23:05:41
[2019-02-24] MEDS ORDERED: POTASSIUM CHLORIDE 20 MEQ/50 ML RTU IV ONE (23:15)
[2019-02-24] MEDS ORDERED: MAGNESIUM SULFATE/D5W 1 GM/100 ML RTUPB IV ONE (23:15)
[2019-02-25] MEDS: VANCOMYCIN HCL 500 MG in DEXTROSE 5%-WATER 100 ML IV SCH (05:20)
[2019-02-25] MEDS: NORMAL SALINE 1000 ML 1,000 ML IV PRN (05:20)
[2019-02-25 05:56] LABS: HEMATOCRIT 30.1 % (36.0-47.0); HEMOGLOBIN 10.4 g/dL (12.0-15.5); MEAN CORPUSCULAR HEMOGLOBIN 32.8 pg (27.0-33.4); MEAN CORPUSCULAR HGB CONC 34.5 g/dL (32.0-36.0); MEAN CORPUSCULAR VOLUME 95 fl (80-97); PLATELET COUNT 124 10^3/uL (150-450); RED BLOOD COUNT 3.16 10^6/uL (3.72-5.28); RED CELL DISTRIBUTION WIDTH 13.4 % (11.5-14.0); WHITE BLOOD COUNT 7.9 10^3/uL (4.0-10.5)
[2019-02-25 06:16] LABS: ANION GAP 5 (5-19); BLOOD UREA NITROGEN 12 mg/dL (7-20); CALCIUM 8.3 mg/dL (8.4-10.2); CARBON DIOXIDE 23 mmol/L (22-30); CHLORIDE 108 mmol/L (98-107); GLUCOSE 96 mg/dL (75-110); POTASSIUM 3.6 mmol/L (3.6-5.0)
[2019-02-25 06:20] LABS: VANCOMYCIN,TROUGH 6.5 ug/mL (5.0-20.0)
[2019-02-25] MEDS ORDERED: DILTIAZEM HCL INJ 25 MG/5 ML VIAL IV ONE (08:30)
[2019-02-25] MEDS ORDERED: DILTIAZEM HCL/D5W 125 MG/125 ML RTUINJ IV PRN (08:30)
[2019-02-25] MEDS: INSULIN LISPRO 100 UNIT/ML 3 ML VIAL SUBCUT SCH ×4 (08:50→21:27)
[2019-02-25] MEDS: DOCUSATE SODIUM 100 MG CAPSULE PO SCH (09:12)
--- NOTE | 2019-02-25 09:12 | EKG REPORT ---
SEVERITY:- ABNORMAL ECG - ATRIAL FIBRILLATION, V-RATE 91-149 BORDERLINE REPOL ABNORMALITY, DIFFUSE LEADS : Confirmed by: Edgardo Cardoza 25-Feb-2019 09:11:28
[2019-02-25] MEDS: ENOXAPARIN SODIUM INJ 40 MG/0.4 ML DISP.SYRIN SUBCUT SCH (09:14)
[2019-02-25] MEDS: CEFEPIME 2 GM/D5W RTU 2 GM/50 ML RTUPB IV SCH ×2 (09:33→21:14)
--- NOTE | 2019-02-25 10:24 | PDOC PROGRESS REPORT ---
Subjective Progress Note for:: 02/25/19 Subjective:: 02/24/2019-no complaints this a.m. 02/25/2019-no complaints, nursing states patient has gone into A. fib with RVR Reason For Visit: 1. CONFUSION #2 SEPSIS #3 TOE PAIN Physical Exam Vital Signs: Temp Pulse Resp BP Pulse Ox 97 F L 116 H 20 135/107 H 95 02/25/19 04:00 02/25/19 08:32 02/25/19 04:00 02/25/19 08:32 02/25/19 04:00 Intake & Output 02/24/19 02/25/19 02/26/19 06:59 06:59 06:59 Intake Total 3687 3311 232 Output Total 450 1475 Balance 3237 1836 232 Weight 63.2 kg 66.1 kg General appearance: PRESENT: no acute distress, well-developed, well-nourished Neck exam: ABSENT: carotid bruit, JVD, lymphadenopathy, thyromegaly Respiratory exam: PRESENT: clear to auscultation dania. ABSENT: rales, rhonchi, wheezes Cardiovascular exam: PRESENT: irregular rhythm, tachycardia Pulses: PRESENT: +1 pedal pulses bilateral GI/Abdominal exam: PRESENT: normal bowel sounds, soft. ABSENT: distended, guarding, mass, organolmegaly, rebound, tenderness Extremities exam: PRESENT: full ROM. ABSENT: calf tenderness, clubbing, pedal edema Neurological exam: PRESENT: alert, awake, oriented to person, oriented to place, oriented to time, oriented to situation, CN II-XII grossly intact. ABSENT: motor sensory deficit Psychiatric exam: PRESENT: appropriate affect, normal mood. ABSENT: homicidal ideation, suicidal ideation Skin exam: PRESENT: dry, intact, warm. ABSENT: cyanosis, rash Results Laboratory Results: 02/25/19 05:14 02/25/19 05:14 02/25/19 02/25/19 02/25/19 05:14 05:14 05:14 WBC 7.9 RBC 3.16 L Hgb 10.4 L Hct 30.1 L MCV 95 MCH 32.8 MCHC 34.5 RDW 13.4 Plt Count 124 L Sodium 135.9 L Potassium 3.6 Chloride 108 H Carbon Dioxide 23 Anion Gap 5 BUN 12 Creatinine 0.55 0.54 Est GFR ( Amer) > 60 > 60 Glucose 96 Calcium 8.3 L Magnesium 2.2 02/23/19 02/23/19 16:05 16:10 Creatine Kinase 116 Troponin I < 0.012 Impressions: Chest X-Ray 02/23/19 16:10 IMPRESSION: NO ACUTE RADIOGRAPHIC FINDING IN THE CHEST. Head CT 02/23/19 16:12 IMPRESSION: CHRONIC CHANGES OF ATROPHY AND MICROVASCULAR ISCHEMIA. NO ACUTE PROCESS. SINUS DISEASE. EVIDENCE OF ACUTE STROKE: NO. Assessment and Plan - Plan Summary Summary: Stable-she has been given 2 L of normal saline by bolus in the ER I am ordering 1 more liter of bolus fluid and then 150/h patient was placed on cefepime and vancomycin IV. Frequent repeat labs will be drawn throughout the night as well as in the morning. She has been seen by the microwave technician who feels that this is either aspiration pneumonia and/or dehydration 02/24/2019- Sepsis improved. Continue antibiotics. Cultures are pending. I will await further findings. Gout-continue current therapy Delirium-patient remains with sitter at this time. Patient is confused awake only not alert to person place time at this time. Continue to follow Fever-improved. Continue to follow Hypokalemia-20 mEq potassium chloride IV times 1 repeat BMP in a.m. 02/25/2019- Sepsis-improved. Continue antibiotics. Continue to await cultures. Gout-continue therapy Delirium-improved. Patient does not need sitter at this time. Awake alert and oriented x3. Fever-improved continue to follow Hypokalemia-stable. Continue follow with BMPs - Inpatient Certification Based on my medical assessment, after consideration of the patient's comorbidities, presenting symptoms, or acuity I expect that the services needed warrant INPATIENT care.: Yes I certify that my determination is in accordance with my understanding of Medicare's requirements for reasonable and necessary INPATIENT services [42 CFR 412.3e].: Yes Medical Necessity: Other - Antibiotics, H fibrillation control
[2019-02-25] MEDS: DILTIAZEM HCL 30 MG TABLET PO SCH ×2 (12:42→17:59)
[2019-02-25] MEDS: APIXABAN 5 MG TABLET PO SCH ×2 (12:42→17:59)
[2019-02-25] MEDS ORDERED: ONDANSETRON HCL INJ/PF 4 MG/2 ML SDV IV PRN (13:00)
[2019-02-25] MEDS ORDERED: ONDANSETRON 4 MG TAB.RAPDIS PO PRN (13:00)
[2019-02-25] MEDS: VANCOMYCIN HCL 1,000 MG in DEXTROSE 5%-WATER 250 ML IV SCH (17:59)
[2019-02-25] MEDS ORDERED: MAG HYDROX/AL HYDROX/SIMETH SUSP 30 ML UDCUP PO PRN (20:14)
[2019-02-26] MEDS: DILTIAZEM HCL 30 MG TABLET PO SCH ×3 (00:22→13:14)
[2019-02-26 04:39] VITALS: BP 97/53
[2019-02-26] MEDS: VANCOMYCIN HCL 1,000 MG in DEXTROSE 5%-WATER 250 ML IV SCH (05:27)
[2019-02-26 05:47] LABS: HEMATOCRIT 30.1 % (36.0-47.0); HEMOGLOBIN 10.4 g/dL (12.0-15.5); MEAN CORPUSCULAR HGB CONC 34.4 g/dL (32.0-36.0); MEAN CORPUSCULAR VOLUME 96 fl (80-97); PLATELET COUNT 126 10^3/uL (150-450); RED BLOOD COUNT 3.14 10^6/uL (3.72-5.28); RED CELL DISTRIBUTION WIDTH 13.4 % (11.5-14.0); WHITE BLOOD COUNT 7.3 10^3/uL (4.0-10.5)
[2019-02-26 05:58] LABS: ANION GAP 6 (5-19); BLOOD UREA NITROGEN 13 mg/dL (7-20); CALCIUM 8.3 mg/dL (8.4-10.2); CARBON DIOXIDE 24 mmol/L (22-30); CHLORIDE 109 mmol/L (98-107); GLUCOSE 96 mg/dL (75-110); POTASSIUM 3.5 mmol/L (3.6-5.0)
[2019-02-26] MEDS ORDERED: INFLUENZA QUAD (6MOS+) 2019-20 VAC 0.5 ML SYR IM ONE (08:00)
[2019-02-26] MEDS: INSULIN LISPRO 100 UNIT/ML 3 ML VIAL SUBCUT SCH ×2 (09:07→12:57)
[2019-02-26] MEDS: DOCUSATE SODIUM 100 MG CAPSULE PO SCH (09:07)
[2019-02-26] MEDS: APIXABAN 5 MG TABLET PO SCH (09:41)
[2019-02-26] MEDS: CEFEPIME 2 GM/D5W RTU 2 GM/50 ML RTUPB IV SCH (09:42)
--- NOTE | 2019-02-26 10:24 | PDOC DISCHARGE SUMMARY ---
Impression - Admit/DC Date/PCP Admission Date/Primary Care Provider: 02/23/19 18:15 Discharge Date: 02/26/19 - Discharge Diagnosis (1) Sepsis Is this a current diagnosis for this admission?: Yes (2) Gout Is this a current diagnosis for this admission?: Yes (3) Delirium Is this a current diagnosis for this admission?: Yes (4) Fever Is this a current diagnosis for this admission?: Yes - Assessment Summary: Stable-she has been given 2 L of normal saline by bolus in the ER I am ordering 1 more liter of bolus fluid and then 150/h patient was placed on cefepime and vancomycin IV. Frequent repeat labs will be drawn throughout the night as well as in the morning. She has been seen by the cement gun operator who feels that this is either aspiration pneumonia and/or dehydration 02/24/2019- Sepsis improved. Continue antibiotics. Cultures are pending. I will await further findings. Gout-continue current therapy Delirium-patient remains with sitter at this time. Patient is confused awake only not alert to person place time at this time. Continue to follow Fever-improved. Continue to follow Hypokalemia-20 mEq potassium chloride IV times 1 repeat BMP in a.m. 02/25/2019- Sepsis-improved. Continue antibiotics. Continue to await cultures. Gout-continue therapy Delirium-improved. Patient does not need sitter at this time. Awake alert and oriented x3. Fever-improved continue to follow Hypokalemia-stable. Continue follow with BMPs - Additional Information Resuscitation Status: Full Code Discharge Diet: As Tolerated Discharge Activity: Activity As Tolerated Prescriptions: Diltiazem HCl [Cardizem Cd 120 mg Capsule] 1 cap.sr PO DAILY #30 cap.sr Cefuroxime Axetil [Ceftin 500 mg Tablet] 500 mg PO BID #20 tablet Home Medications: Cefuroxime Axetil [Ceftin 500 mg Tablet] 500 mg PO BID #20 tablet 02/26/19 Diltiazem HCl [Cardizem Cd 120 mg Capsule] 1 cap.sr PO DAILY #30 cap.sr 02/26/19 History of Present Illiness History of Present Illness: JONATHAN DURON is a 68 year old female who presented to ER with a 1 day history of confusion and fever. She is not a good historian at that time states she went to [place] 2 days earlier and treated for possible cellulitis of great toe. Hospital Course Hospital Course: Patient was admitted to [facility] and placed on IV antibiotics and fluids. Blood cultures were obtained. Patient was also evaluated by our cement gun operator who felt the patient was dehydrated and possibly had aspiration pneumonia secondary to infectious vomiting the night before. Patient was admitted for the septic work- up and over the course of her stay has shown gradual improvement. Chest x-rays and CAT scan of head were both negative blood cultures have been negative x48 hours. I will send patient home on Ceftin 500 mg p.o. twice daily and continue to follow her blood cultures for any changes. If there is change I will make the appropriate changes plan of care and contact patient. Patient is in agreement with plan of care. Patient also had a short bout of A. fib with RVR and was converted with Cardizem. I will place patient on Cardizem CD 120 mg p.o. daily and patient will follow-up with primary care in 1 week. Physical Exam Vital Signs: Temp Pulse Resp BP Pulse Ox 98 F 60 20 97/53 L 95 02/26/19 04:38 02/26/19 07:00 02/26/19 04:38 02/26/19 04:38 02/26/19 04:38 Intake & Output 02/25/19 02/26/19 02/27/19 06:59 06:59 06:59 Intake Total 3311 1173 250 Output Total 1475 2550 Balance 1836 -1377 250 Weight 66.1 kg 65.9 kg General appearance: PRESENT: no acute distress, well-developed, well-nourished Head exam: PRESENT: atraumatic, normocephalic Eye exam: PRESENT: conjunctiva pink, EOMI, PERRLA. ABSENT: scleral icterus Ear exam: PRESENT: normal external ear exam Mouth exam: PRESENT: moist, tongue midline Neck exam: ABSENT: carotid bruit, JVD, lymphadenopathy, thyromegaly Respiratory exam: PRESENT: clear to auscultation dania. ABSENT: rales, rhonchi, wheezes Cardiovascular exam: PRESENT: RRR. ABSENT: diastolic murmur, rubs, systolic murmur Pulses: PRESENT: normal dorsalis pedis pul Vascular exam: PRESENT: normal capillary refill GI/Abdominal exam: PRESENT: normal bowel sounds, soft. ABSENT: distended, guarding, mass, organolmegaly, rebound, tenderness Rectal exam: PRESENT: deferred Extremities exam: PRESENT: full ROM. ABSENT: calf tenderness, clubbing, pedal edema Neurological exam: PRESENT: alert, awake, oriented to person, oriented to place, oriented to time, oriented to situation, CN II-XII grossly intact. ABSENT: motor sensory deficit Psychiatric exam: PRESENT: appropriate affect, normal mood. ABSENT: homicidal ideation, suicidal ideation Skin exam: PRESENT: dry, intact, warm. ABSENT: cyanosis, rash Results Laboratory Results: WBC 7.3 10^3/uL (4.0-10.5) 02/26/19 05:03 RBC 3.14 10^6/uL (3.72-5.28) L 02/26/19 05:03 Hgb 10.4 g/dL (12.0-15.5) L 02/26/19 05:03 Hct 30.1 % (36.0-47.0) L 02/26/19 05:03 MCV 96 fl (80-97) 02/26/19 05:03 MCH 33.0 pg (27.0-33.4) 02/26/19 05:03 MCHC 34.4 g/dL (32.0-36.0) 02/26/19 05:03 RDW 13.4 % (11.5-14.0) 02/26/19 05:03 Plt Count 126 10^3/uL (150-450) L 02/26/19 05:03 Lymph % (Auto) 17.7 % (13-45) 02/24/19 07:06 [place] % (Auto) 9.5 % (3-13) 02/24/19 07:06 Eos % (Auto) 0.0 % (0-6) 02/24/19 07:06 Baso % (Auto) 0.4 % (0-2) 02/24/19 07:06 Absolute Neuts (auto) 6.9 10^3/uL (1.7-8.2) 02/24/19 07:06 Absolute Lymphs (auto) 1.7 10^3/uL (0.5-4.7) 02/24/19 07:06 Absolute Monos (auto) 0.9 10^3/uL (0.1-1.4) 02/24/19 07:06 Absolute Eos (auto) 0.0 10^3/uL (0.0-0.6) 02/24/19 07:06 Absolute Basos (auto) 0.0 10^3/uL (0.0-0.2) 02/24/19 07:06 Seg Neutrophils % 72.4 % (42-78) 02/24/19 07:06 PT 14.1 SEC (11.4-15.4) 02/24/19 07:06 INR 1.09 02/24/19 07:06 VBG pH 7.46 (7.30-7.42) H 02/23/19 16:05 VBG pCO2 33.6 mmHg (35-63) L 02/23/19 16:05 VBG HCO3 23.6 mmol/L (20-32) 02/23/19 16:05 VBG Base Excess 0.4 mmol/L 02/23/19 16:05 Sodium 138.5 mmol/L (137-145) 02/26/19 05:03 Potassium 3.5 mmol/L (3.6-5.0) L 02/26/19 05:03 Chloride 109 mmol/L (98-107) H 02/26/19 05:03 Carbon Dioxide 24 mmol/L (22-30) 02/26/19 05:03 Anion Gap 6 (5-19) 02/26/19 05:03 BUN 13 mg/dL (7-20) 02/26/19 05:03 Creatinine 0.52 mg/dL (0.52-1.25) 02/26/19 05:03 Est GFR ( Amer) > 60 (>60) 02/26/19 05:03 Est GFR (MDRD) Non-Af > 60 (>60) 02/26/19 05:03 Glucose 96 mg/dL (75-110) 02/26/19 05:03 POC Glucose 106 mg/dL (70-110) 02/25/19 21:15 Lactic Acid 0.9 mmol/L (0.7-2.1) 02/24/19 07:06 Uric Acid 3.3 mg/dL (2.5-7.5) 02/23/19 16:05 Calcium 8.3 mg/dL (8.4-10.2) L 02/26/19 05:03 Magnesium 2.2 mg/dL (1.6-2.3) 02/25/19 05:14 Total Bilirubin 0.8 mg/dL (0.2-1.3) 02/24/19 07:06 Direct Bilirubin 0.1 mg/dL (0.0-0.4) 02/24/19 07:06 Neonat Total Bilirubin Not Reportable 02/24/19 07:06 Neonat Direct Bilirubin Not Reportable 02/24/19 07:06 Neonat Indirect Bili Not Reportable 02/24/19 07:06 AST 55 U/L (14-36) H 02/24/19 07:06 ALT 58 U/L (<35) 02/24/19 07:06 Alkaline Phosphatase 72 U/L (38-126) 02/24/19 07:06 Ammonia 10.1 umol/L (9-33) 02/23/19 19:48 Creatine Kinase 116 U/L (30-135) 02/23/19 16:05 Troponin I < 0.012 ng/mL 02/23/19 16:10 Total Protein 5.3 g/dL (6.3-8.2) L 02/24/19 07:06 Albumin 3.1 g/dL (3.5-5.0) L 02/24/19 07:06 TSH 0.51 uIU/mL (0.47-4.68) 02/23/19 16:05 Urine Color YELLOW 02/23/19 16:51 Urine Appearance CLOUDY 02/23/19 16:51 Urine pH 5.0 (5.0-9.0) 02/23/19 16:51 Ur Specific [place] 1.026 02/23/19 16:51 Urine Protein 30 mg/dL (NEGATIVE) H 02/23/19 16:51 Urine Glucose (UA) 50 mg/dL (NEGATIVE) H 02/23/19 16:51 Urine Ketones NEGATIVE mg/dL (NEGATIVE) 02/23/19 16:51 Urine Blood SMALL (NEGATIVE) H 02/23/19 16:51 Urine Nitrite (Reflex) NEGATIVE (NEGATIVE) 02/23/19 16:51 Urine Bilirubin NEGATIVE (NEGATIVE) 02/23/19 16:51 Urine Urobilinogen NEGATIVE mg/dL (<2.0) 02/23/19 16:51 Leukocyte Esterase Rfl NEGATIVE (NEGATIVE) 02/23/19 16:51 Urine RBC (Auto) 3 /HPF 02/23/19 16:51 U Hyaline Cast (Auto) 3 /LPF 02/23/19 16:51 Urine WBC (Reflex) 6 /HPF 02/23/19 16:51 Squamous Epi Cells Auto 3 /HPF 02/23/19 16:51 Urine Mucus (Auto) MANY /LPF 02/23/19 16:51 Urine Ascorbic Acid NEGATIVE (NEGATIVE) 02/23/19 16:51 Stl C. Difficile GDH Ag NEGATIVE (NEGATIVE) 02/23/19 20:34 Stl C.difficile Tox A&B NEGATIVE (NEGATIVE) 02/23/19 20:34 Time Trough Drawn 0514 02/25/19 05:14 Vancomycin Trough 6.5 ug/mL (5.0-20.0) 02/25/19 05:14 Urine Opiates Screen NEGATIVE 02/23/19 16:51 Urine Methadone Screen NEGATIVE 02/23/19 16:51 Ur Barbiturates Screen NEGATIVE 02/23/19 16:51 Ur Phencyclidine Scrn NEGATIVE 02/23/19 16:51 Ur Amphetamines Screen NEGATIVE 02/23/19 16:51 U Benzodiazepines Scrn UNCONFIRMED POSITIVE 02/23/19 16:51 Urine Cocaine Screen NEGATIVE 02/23/19 16:51 U Marijuana (THC) Screen UNCONFIRMED POSITIVE 02/23/19 16:51 02/23/19 16:10 Troponin I < 0.012 Impressions: Chest X-Ray 02/23/19 16:10 IMPRESSION: NO ACUTE RADIOGRAPHIC FINDING IN THE CHEST. Head CT 02/23/19 16:12 IMPRESSION: CHRONIC CHANGES OF ATROPHY AND MICROVASCULAR ISCHEMIA. NO ACUTE PROCESS. SINUS DISEASE. EVIDENCE OF ACUTE STROKE: NO. Stroke Is this a Stroke Patient?: No Stroke Pt being discharged on Anti-thrombolytic therapy?: No Reason(s) for not prescribing Anti-thrombolytic therapy:: Not indicated Stroke Pt being discharged on Anti-coagulation therapy?: No Reason(s) for not prescribing Anti-coagulation therapy:: Not indicated Stroke Pt being discharged on Statins?: No Reason(s) for not prescribing Statins therapy:: Not indicated Acute Heart Failure - Is this a Heart Failure Patient?: No
== END 2019-02-26 14:00 | disposition home or self-care (01) | DRG 871 ==
LOC: ER 15:50 → EH 18:15 → 3N 21:43 → UNDODISIN 02-26 12:15
PROVIDERS: ADMIT Hospitalist; ATTEND Hospitalist
DX: A41.9 Sepsis, unspecified organism (principal); J69.0 Pneumonitis due to inhalation of food and vomit; E86.0 Dehydration; R41.0 Disorientation, unspecified; M10.9 Gout, unspecified; E87.6 Hypokalemia; I48.91 Unspecified atrial fibrillation
CPT/HCPCS: 36415; 51701; 51702; 70450; 71045; 80048; 80053; 80202; 80307; 81001; 82140; 82550; 82565; 82803; 82962; 83605; 83735; 84443; 84484; 84550; 85025; 85027; 85610; 87040; 87324; 87449; 90686; 93005; 93010; 96365; 96367; 99291; J0692; J1650; J2060; J2405; J3370; J3475; J3480; J3490; J7030; J7060; S0119